=== PATIENT | male | born 1980 | race Caucasian/White ===

== ENCOUNTER 2019-03-26 12:14 | Day surgery (SDC) | payer OTHER ==
[2019-03-26] MEDS ORDERED: LR 1,000 ML IV ONE (12:28)
[2019-03-26] MEDS ORDERED: BUPIVACAINE/EPI 0.5% 30 ML SDV ONE (12:41)
--- NOTE | 2019-03-26 12:53 | PDHPUP ---
History & Physical Update H&P update statement: This history and physical update is based on an assessment of the patient which was completed after admission or registration (within 24 hours), but prior to the surgery/procedure. H&P update: H&P reviewed & patient examined, no change in patient's condition since H&P completed
[2019-03-26] MEDS ORDERED: MIDAZOLAM 2 MG/2 ML VIAL IVP ONE (13:08)
--- NOTE | 2019-03-26 13:09 | PDANEPAE ---
ANE History of Present Illness 39 year old healthy male for lap inguinal hernia repair. ANE Past Medical History - Cardiovascular History Hx Hypertension: No Hx Arrhythmias: No Hx Chest Pain: No Hx Coronary Artery / Peripheral Vascular Disease: No Hx CHF / Valvular Disease: No Hx Palpitations: No - Pulmonary History Hx COPD: No Hx Asthma/Reactive Airway Disease: No Hx Recent Upper Respiratory Infection: No Hx Oxygen in Use at Home: No Hx Sleep Apnea: No Sleep Apnea Screening Result - Last Documented: Negative - Neurologic History Hx Cerebrovascular Accident: No Hx Seizures: No Hx Dementia: No - Endocrine History Hx Diabetes: No - Renal History Hx Renal Disorders: No - Liver History Hx Hepatic Disorders: No - Neurological & Psychiatric Hx Hx Neurological and Psychiatric Disorders: No - Cancer History Hx Cancer: No - Congenital Disorder History Hx Congenital Disorders: No - GI History Hx Gastrointestinal Disorders: No - Other Health History Other Health History: NEG - Chronic Pain History Chronic Pain: No - Surgical History Prior Surgeries: NONE ANE Review of Systems Review of systems is: negative Review of Systems: - Exercise capacity METS (RN): 6 METS ANE Patient History - Allergies Allergies/Adverse Reactions: No Known Allergies Allergy (Unverified 03/24/19 13:25) - Home Medications Home Medications: Herbals/Supplements -Info Only 03/24/19 [Last Taken 03/20/19] Ibuprofen 03/24/19 [Last Taken 03/20/19] - NPO status NPO Since - Liquids (Date): 03/26/19 NPO Since - Liquids (Time): 09:00 NPO Since - Solids (Date): 03/25/19 NPO Since - Solids (Time): 20:00 - Smoking Hx Smoking Status: Never smoked - Family Anes Hx Family Hx Anesthesia Complications: NEG ANE Labs/Vital Signs - Vital Signs Blood Pressure: 132/82 Heart Rate: 79 Respiratory Rate: 16 O2 Sat (%): 95 Height: 182.88 cm Weight: 92.986 kg ANE Physical Exam - Airway Neck exam: FROM Mallampati Score: Class 2 Mouth exam: normal dental/mouth exam - Pulmonary Pulmonary: no respiratory distress - Cardiovascular Cardiovascular: regular rate and rhythym - ASA Status ASA Status: I ANE Anesthesia Plan Anesthesia Plan: general endotracheal anesthesia
[2019-03-26] MEDS ORDERED: PROPOFOL/EMULSION 500 MG/50 ML BOTTLE IV ONE (13:10)
[2019-03-26] MEDS ORDERED: fentaNYL 250 MCG/5 ML INJ ONE (13:10)
[2019-03-26] MEDS ORDERED: MIDAZOLAM 2 MG/2 ML VIAL ONE (13:17)
[2019-03-26] MEDS ORDERED: LR 500 ML IV PRN (14:09)
[2019-03-26] MEDS ORDERED: ONDANSETRON 4 MG/2 ML VIAL IVP PRN (14:09)
[2019-03-26] MEDS ORDERED: oxyCODONE IR 5 MG TAB PO PRN (14:09)
[2019-03-26] MEDS ORDERED: NALOXONE HCL 0.4 MG/ML INJ IVP PRN (14:09)
[2019-03-26] MEDS ORDERED: LABETALOL HCL 5 MG/ML 20 ML MDV IVP PRN (14:09)
[2019-03-26] MEDS ORDERED: HYDROmorphONE/DILAUDID 1 MG/ML INJ IVP PRN (14:09)
[2019-03-26] MEDS ORDERED: PHENYLEPHRINE HCL 100 MCG/ML SYR IVP PRN (14:15)
[2019-03-26] MEDS ORDERED: PROMETHAZINE HCL 25 MG/ML INJ IVP PRN (14:15)
[2019-03-26] MEDS ORDERED: DEXAMETHASONE 4 MG/ML VIAL IVP PRN (14:15)
[2019-03-26] MEDS ORDERED: MEPERIDINE 25 MG/0.5 ML AMP IVP PRN (14:15)
[2019-03-26] MEDS ORDERED: fentaNYL 100 MCG/2 ML INJ ONE (14:58)
[2019-03-26] MEDS: fentaNYL 100 MCG/2 ML INJ IVP PRN ×3 (15:00→15:18)
--- NOTE | 2019-03-26 15:25 | POSTOPPROG ---
Post Op Note Date of Operation: 03/26/19 Surgeon: Chacorta Guerra Anesthesiologist: Leonela Myles Anesthesia: GET(General Endotracheal) Pre-op Diagnosis: BIH Post-op Diagnosis: Same Procedure: Lap BIH Findings: Right indirect with lipoma, left direct Inf/Abcess present in the surg proc area at time of surgery?: No EBL: Minimal Complications: no immediate Specimen(s): none
[2019-03-26 15:57] VITALS: BP 128/90
--- NOTE | 2019-03-26 17:40 | GOP ---
[f rep st] OPERATIVE REPORT DATE OF OPERATION: 03/26/2019 SURGEON: Chacorta Guerra MD ANESTHESIA: General. ANESTHESIOLOGIST: Dr. Martinez. PREOPERATIVE DIAGNOSIS: Bilateral inguinal hernia. POSTOPERATIVE DIAGNOSIS: Bilateral inguinal hernia. PROCEDURE PERFORMED: Laparoscopic bilateral hernia repair. FINDINGS: See below. INDICATIONS: 39-year-old healthy male with symptomatic bilateral inguinal hernias. He is undergoing surgical repair at this time. Risks and benefits were explained including bleeding, infection, open conversion, bladder injury, as well as recurrence. All questions were answered. He desires to proceed. DESCRIPTION OF PROCEDURE: General anesthesia is induced. The abdomen was pre- injected with 0.5% Marcaine with epinephrine. A curvilinear infraumbilical incision was created. The right anterior rectus sheath fascia was opened. The preperitoneal space was developed with a balloon dissector and trocar until bilateral pubic arches were identified. A structural balloon was inserted, followed by 2 5 mm lower midline ports. Bilateral spermatic cords were circumferentially encompassed. There was a large right inguinal cord lipoma with small associated indirect sac. Sac and fat were cleared away from the spermatic cord and allowed to fall back toward the abdominal space. A large 3D Marlex mesh patch was inserted and secured to Coopers ligament and the anterior abdominal wall. The contralateral groin was dissected out. There was a large direct space defect without indirect component. The preperitoneal fat was skeletonized away from the sac allowing it toe retract from the abdominal wall. A large 3D patch was inserted and secured in mirror image fashion. Coverage of the entire myopectineal surface was attained. Satisfactory hemostasis was assured. Trocars were removed under direct visualization. The anterior rectus sheath was closed with Vicryl suture. The wounds were closed with Monocryl suture followed by Dermabond. The patient was taken to recovery uneventfully. Copy requested to: Ainsley Gamble /[id number]/MODL [id number]
== END 2019-03-26 16:05 | disposition home or self-care (01) ==
LOC: FSGY 12:14
PROVIDERS: ATTEND Surgery
PROC: 0YUA4JZ Supplement Bilateral Inguinal Region with Synthetic Substitute, Percutaneous Endoscopic Approach (ICD-10-PCS; principal; 2019-03-26 13:45)
DX: K40.20 Bilateral inguinal hernia, without obstruction or gangrene, not specified as recurrent (principal)
CPT/HCPCS: C1727; C1781; J2250; J2704; J3010